=== PATIENT | male | born 1995 | race Caucasian/White ===

== ENCOUNTER 2017-05-10 04:47 | Emergency (ER) | payer OTHER | END 2017-05-10 12:45 | disposition home or self-care (01) | LOC: ER1 04:47 | DX: S01.01XA Laceration without foreign body of scalp, initial encounter (principal); T14.8 Other injury of unspecified body region; F17.200 Nicotine dependence, unspecified, uncomplicated; X93.XXXA Assault by handgun discharge, initial encounter | CPT/HCPCS: 12002; 70450; 71250; 72125; 73030; 73080; 73110; 90471; 90714; 99283 ==

== ENCOUNTER 2022-05-14 22:15 | Emergency (ER) | payer OTHER ==
[2022-05-14 23:30] LABS: HEMOGLOBIN 15.9 gm/dl (14.0-17.5); RED BLOOD COUNT 5.79 M/UL (4.20-5.50)
== END 2022-05-15 03:08 | disposition home or self-care (01) ==
LOC: ER1 22:15
PROVIDERS: Student in an Organized Health Care Education/Training Program
DX: T67.5XXA Heat exhaustion, unspecified, initial encounter (principal); N17.9 Acute kidney failure, unspecified; X30.XXXA Exposure to excessive natural heat, initial encounter
CPT/HCPCS: 71045; 80053; 82550; 82553; 84484; 85025; 93005; 99284